=== PATIENT | female | born 1975 | race Caucasian/White ===

== ENCOUNTER 2021-02-28 22:52 | Emergency (ER) | payer SELFPAY ==
[~2021-02-28] VITALS: Ht 170 cm; Wt 100.0 kg
--- OUTSIDE RECORDS SUMMARY | 2021-02-28 22:58 | XMS REPORT | Clinical Summary ---
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 Active Problems Not on file Social History Date Tobacco Use Types Packs/Day Years Used Never Smoker Smokeless Tobacco: Never Used Comments Alcohol Use Standard Drinks/Week No 0 (1 standard drink = 0.6 o z pure alcohol) Sex Assigned at Date Recorded Not on file Last Filed Vital Signs Reading Time Taken Comments Vital Sign 115/75 01/31/2014 7:33 PM ONCOLOGY CONSULTANT Blood Pressure 96 01/31/2014 7:33 PM ONCOLOGY CONSULTANT Pulse 36.7 C (98.1 F) 01/31/2014 7:33 PM ONCOLOGY CONSULTANT Temperature 12 01/31/2014 7:33 PM ONCOLOGY CONSULTANT Respiratory Rate 98% 01/31/2014 7:33 PM ONCOLOGY CONSULTANT Oxygen Saturation - - Inhaled Oxygen Concentration 127 kg (280 lb) 01/31/2014 7:33 PM ONCOLOGY CONSULTANT Weight 170.2 cm (5' 7") 01/31/2014 7:33 PM ONCOLOGY CONSULTANT Height 43.85 01/31/2014 7:33 PM ONCOLOGY CONSULTANT Body Mass Index Plan of Treatment Not on file Results Not on filefrom Last 3 Months
[2021-02-28 23:26] LABS: BILIRUBIN,URINE NEGATIVE (NEGATIVE); CLARITY,URINE CLEAR; COLOR,URINE YELLOW; GLUCOSE, URINE (UA) 1+ (NEGATIVE); KETONES,URINE NEGATIVE (NEGATIVE); LEUKOCYTE ESTERASE ,URINE NEGATIVE (NEGATIVE); NITRITE,URINE NEGATIVE (NEGATIVE); PROTEIN,URINE NEGATIVE (NEGATIVE)
[2021-02-28] MEDS ORDERED: HYOSCYAMINE 0.125 MG (LEVSIN) TAB PO ONE (23:30)
[2021-02-28 23:35] LABS: BACTERIA,URINE FEW /HPF; WBC,URINE 0-2 /HPF
[2021-03-01] MEDS ORDERED: ONDANSETRON 4 MG (ZOFRAN) ORAL DISSOLVE TAB SL ONE
--- NOTE | 2021-03-01 00:11 | ED GU-Female ---
General Chief Complaint: - Reproductive Stated Complaint: UNABLE TO URINATE / SPOTTING Nursing Triage Note: PT AMB TO ED BY POV WITH C/O BURNING/DIFFICULTY URINATING. REPORTS SYMPTOMS BEGAN 3 DAYS AGO, ALSO REPORTS LOWER BACK PAIN AND BLOOD TINGE WHEN WIPING. PT STATES SHE THOUGHT SHE HAD A YEAST INFECTION SO SHE HAS BEEN USING MONESTAT AT HOME, ALSO REPORTS TAKING CLINDAMYCIN FOR THE LAST TWO DAYS. Source: patient Exam Limitations: no limitations History of Present Illness Date Seen by Provider: Feb 28, 2021 Time Seen by Provider: 22:56 Initial Comments This 45-year-old woman presents to the emergency room with complaints of dysuria, vulvar and perineal irritation, difficulty urinating, low back pain, and labile blood sugars over the past 3 days. She is uncertain if her glucometer is working correctly as she will have widely variable blood sugars in a short period of time. She believes she has a yeast infection. She notes some blood when wiping as well. She is post to extract me. She tried taking some Monistat and reports that today she could not get the applicator inserted vaginally she had some clindamycin at home which she has been taking for the past 2 days. She denies any vaginal discharge. She did not notice any pain with intercourse about a week ago. Allergies and Home Medications Allergies Coded Allergies: Penicillins (Verified Allergy, Unknown, 02/28/21) ketorolac (Verified Allergy, Unknown, 02/28/21) metronidazole (Verified Allergy, Unknown, 02/28/21) promethazine (Verified Allergy, Unknown, 02/28/21) tetracycline (Verified Allergy, Unknown, 02/28/21) tramadol (Verified Allergy, Unknown, 02/28/21) codeine (Verified Adverse Reaction, Mild, Itching, 02/28/21) Patient Home Medication List Home Medication List Reviewed: Yes Fluconazole (Diflucan) 150 Mg Tablet, 150 MG PO UD Prescribed by: RODDY HARRIS on 03/01/21 001 Hyoscyamine Sulfate (Levsin-Sl) 0.125 Mg Tab.subl, 1-2 TAB SL Q4H PRN for SPASMS Prescribed by: RODDY HARRIS on 03/01/21 001 Nitrofurantoin Monohyd/M-Cryst (Macrobid 100 mg Capsule) 100 Mg Capsule, 1 TAB PO BID Prescribed by: RODDY HARRIS on 03/01/21 0016 Review of Systems Review of Systems Constitutional: no symptoms reported EENTM: no symptoms reported Respiratory: no symptoms reported Cardiovascular: no symptoms reported Gastrointestinal: no symptoms reported Genitourinary: see HPI : No Musculoskeletal: no symptoms reported Skin: see HPI Psychiatric/Neurological: Anxiety Endocrine: No Symptoms Reported Hematologic/Lymphatic: No Symptoms Reported Past Ctpsvwz-Fceane-Vqiamc Hx Patient Social History Tobacco Use?: No Use of E-Cig and/or Vaping dev: No Substance use?: No Alcohol Use?: No Pt feels they are or have been: No Immunizations Up To Date Influenza Vaccine Up-to-Date: No; Not Current First/Initial COVID19 Vaccinat: N/A Past Medical History Surgery/Hospitalization HX: HYSTERECTOMY, TUBAL LIGATION, CHOLECYSTECTOMY Surgeries: Yes Abdominal (Adhesiolysis), Gallbladder, Hysterectomy, Tubal Ligation Respiratory: No Cardiac: No Neurological: No Reproductive Disorders: No Genitourinary: No Gastrointestinal: No Musculoskeletal: No Endocrine: Yes Diabetes, Non-Insulin dep HEENT: No Cancer: No Psychosocial: No Integumentary: No Physical Exam Vital Signs Vital Signs - First Documented 02/28/21 23:05 Temp 36.2 Pulse 107 Resp 18 B/P (MAP) 137/93 (108) Pulse Ox 97 O2 Delivery Room Air Capillary Refill : Height, Weight, BMI Height: '" Weight: lbs. oz. kg; BMI Method: General Appearance: WD/WN, mild distress (Anxious) HEENT: PERRL/EOMI, normal ENT inspection Neck: normal inspection Cardiovascular: regular rate, rhythm, no edema, no murmur Respiratory: lungs clear, normal breath sounds, no respiratory distress, no accessory muscle use Gastrointestinal: normal bowel sounds, soft, other (Mild tenderness in the suprapubic region) Genital/Rectal: other (There is erythema in the vulvar and vaginal introitus regions. No purulent discharge or active bleeding noted.) Extremities: normal inspection, no pedal edema Neurologic/Psychiatric: hat conditioner II-XII nml as tested, no motor/sensory deficits, alert, normal mood/affect, oriented x 3 Skin: normal color, warm/dry, other (See above) Progress/Results/Core Measures Suspected Sepsis SIRS Temperature: Pulse: 107 Respiratory Rate: 18 Blood Pressure 137 /93 Mean: 108 Results/Orders Lab Results Laboratory Tests Test 02/28/21 23:10 02/28/21 23:34 Range/Units Urine Color YELLOW Urine Clarity CLEAR Urine pH 6.0 5-9 Urine Specific [place] >=1.030 1.016-1.022 Urine Protein NEGATIVE NEGATIVE Urine Glucose (UA) 1+ H NEGATIVE Urine Ketones NEGATIVE NEGATIVE Urine Nitrite NEGATIVE NEGATIVE Urine Bilirubin NEGATIVE NEGATIVE Urine Urobilinogen 0.2 < = 1.0 MG/DL Urine Leukocyte Esterase NEGATIVE NEGATIVE Urine RBC (Auto) 2+ H NEGATIVE Urine RBC 2-5 H /HPF Urine WBC 0-2 /HPF Urine Squamous Epithelial Cells 2-5 /HPF Urine Crystals NONE /LPF Urine Bacteria FEW H /HPF Urine Casts NONE /LPF Urine Mucus MODERATE H /LPF Urine Culture Indicated NO Glucometer 345 H 70-110 MG/DL My Orders Orders - RODDY PRO MD Ua Culture If Indicated (02/28/21 22:56) Bladder Scan (02/28/21 22:56) Hyoscyamine Sl Tablet (Levsin Sl Tablet) (02/28/21 23:30) Accucheck Stat ONCE (02/28/21 23:30) Ondansetron Oral Dissolve Tab (Zofran (03/01/21 00:00) Nitrofurantoin Capsule,Macro (Macrobid C (03/01/21 00:15) Fluconazole Tablet (Ed Only) (Diflucan T (03/01/21 00:15) Urine Culture (03/01/21 00:11) Medications Given in ED Current Medications Medications Dose Ordered Sig/Alfred Route Start Time Stop Time Status Last Admin Dose Admin Fluconazole 150 mg ONCE ONCE PO 03/01/21 00:15 03/01/21 00:16 DC 03/01/21 00:24 150 MG Hyoscyamine Sulfate 0.25 mg ONCE ONCE PO 02/28/21 23:30 02/28/21 23:31 DC 02/28/21 23:49 0.25 MG Nitrofurantoin Macrocrystals 100 mg ONCE ONCE PO 03/01/21 00:15 03/01/21 00:16 DC 03/01/21 00:23 150 MG Ondansetron HCl 8 mg ONCE ONCE SL 03/01/21 00:00 03/01/21 00:01 DC 02/28/21 23:55 8 MG Vital Signs/I&O 02/28/21 03/01/21 23:05 00:29 Temp 36.2 Pulse 107 101 Resp 18 18 B/P (MAP) 137/93 (108) 130/87 Pulse Ox 97 98 O2 Delivery Room Air Room Air Capillary Refill : Blood Pressure Mean: 108 Point of Care Testing Finger Stick Blood Glucose: 345 Blood Glucose Action Taken: doc and rn notified Progress Note : Progress Note Urinalysis was suggestive of possible mild UTI and exam was suspicious for candidiasis. Patient was offered further work-up but declined in favor of conservative management with Diflucan and antibiotics. She will seek further evaluation if this does not resolve her symptoms. Levsin was used successfully to treat bladder cramping. Zofran was used to treat nausea. Departure Impression Primary Impression: Vulvovaginitis Additional Impressions: Bladder spasm Hyperglycemia Nausea Disposition: HOME, SELF-CARE Condition: Improved Departure-Patient Inst. Decision time for Depature: 00:12 Referrals: NO,LOCAL PHYSICIAN (PCP/Family) Primary Care Physician Patient Instructions: Vulvovaginal Yeast Infection, Bladder Spasms Add. Discharge Instructions: For your diabetes eat a diet very low in carbohydrates and sugars. Drink plenty of water. Restart glimepiride as previously prescribed. Replace your glucometer and glucose strips. Follow-up with a primary care provider soon as possible to review diabetes management. Check your blood sugars fasting in the morning and 2 hours after each meal. Present these blood sugars to your primary care provider to help determine best course of management. For your urinary tract infection complete the antibiotics as prescribed. Please be aware this antibiotic may cause your urine to turn orangeish or reddish in color. This is normal. Drink plenty of water. For your yeast infection, concentrate on controlling your blood sugars. Take another dose of Diflucan on March 02. Repeat 1 more time 2 or 3 days later on the or . Call with questions or concerns. Return to the ER if you have worsening symptoms. All discharge instructions reviewed with patient and/or family. Voiced understanding. Scripts Hyoscyamine Sulfate (Levsin-Sl) 0.125 Mg Tab.subl 1-2 TAB SL Q4H PRN for SPASMS, #10 TAB 0 Refills Prov: RODDY PRO MD 03/01/21 Nitrofurantoin Monohyd/M-Cryst (Macrobid 100 mg Capsule) 100 Mg Capsule 1 TAB PO BID, #10 CAP Prov: RODDY PRO MD 03/01/21 Fluconazole (Diflucan) 150 Mg Tablet 150 MG PO UD, #2 TAB Take on March 02. Repeat again on March 04 or . Prov: RODDY PRO MD 03/01/21 RODDY PRO MD Mar 01, 2021 00:11
[2021-03-01] MEDS ORDERED: NITROFURANTOIN 100 MG (MACROBID) CAPSULE PO ONE (00:15)
[2021-03-01] MEDS ORDERED: FLUCONAZOLE 150 MG TABLET (ED ONLY) PO ONE (00:15)
[2021-03-01] MEDS ORDERED: FLUC150T PO (00:16)
[2021-03-01] MEDS ORDERED: NITR-65 PO (00:16)
[2021-03-01] MEDS ORDERED: HYOS0.1283 SL (00:18)
[2021-03-01 00:29] VITALS: BP 130/87
== END 2021-03-01 00:30 | disposition home or self-care (01) ==
LOC: EDUNIT# 22:52 → ER 22:54
DX: N76.0 Acute vaginitis (principal); N32.89 Other specified disorders of bladder; E11.65 Type 2 diabetes mellitus with hyperglycemia; R11.0 Nausea
CPT/HCPCS: 81000; 82947; 87088

== ENCOUNTER → 2022-09-14 | Outpatient (CLI) | payer OTHER ==
[~2022-09-14] MED LIST: FLUC150T PO; HYOS0.1283 SL; NITR-65 PO
--- NOTE | 2022-09-14 18:26 | Diagnostic Imaging Report ---
INDICATION: Back pain. TECHNIQUE: Three views were obtained. FINDINGS: The alignment is normal. The vertebral body heights are well maintained. There is no spondylolysis or spondylolisthesis. No fractures are identified. Gallbladder is surgically absent. The soft tissue structures are unremarkable. IMPRESSION: Unremarkable lumbar spine series. Dictated by: Dictated on workstation # [id number]
== END ==
LOC: RAD 10:36
PROVIDERS: ATTEND Family Medicine
DX: Z02.71 Encounter for disability determination (principal); M54.50 Low back pain, unspecified
CPT/HCPCS: 72100